=== PATIENT | female | born 1985 | race Two or more races ===

== ENCOUNTER 2017-12-31 09:49 | Inpatient (IN) | payer OTHER ==
[2017-12-27 11:17] VITALS: BMI 39.6
[~2017-12-31 09:49] MED LIST: BUPIVACAINE HCL/PF 0.5% (5MG/ML) 10 ML VIAL IJ ONE
[2017-12-31] MEDS ORDERED: PROPOFOL 20 ML ONE ×2 (12:23→14:15)
[2017-12-31] MEDS ORDERED: fentaNYL CITRATE 250 MCG/5 ML VIAL ONE (12:23)
[2017-12-31] MEDS ORDERED: DEXAMETHASONE SOD PHOSPHATE 4 MG/1 ML VIAL ONE (12:23)
[2017-12-31] MEDS ORDERED: ROCURONIUM BROMIDE 50 MG/5 ML VIAL ONE (12:23)
[2017-12-31] MEDS ORDERED: LIDOCAINE HCL/PF 2% SDV 5ML VIAL ONE (12:23)
[2017-12-31] MEDS ORDERED: ROPIVACAINE HCL 0.5% 30ML VIAL ONE (12:36)
[2017-12-31] MEDS ORDERED: DEXAMETHASONE SOD PHOSPHATE/PF 10 MG/ML SDV ONE (12:36)
[2017-12-31] MEDS ORDERED: MIDAZOLAM HCL 2 MG/2 ML SINGLE DOSE VIAL ONE ×2 (12:37)
[2017-12-31] MEDS ORDERED: NEOSTIGMINE METHYLSULFATE 0.5 MG/ML - 10 ML MDV ONE (12:57)
--- NOTE | 2017-12-31 13:16 | HP ---
Admitting History and Physical - Admission Chief Complaint: Morbid obesity History Source: Patient Limitations to Obtaining History: No Limitations - Past Medical History ...LMP: 12/06/17 ...LMP Comment: depo injection Q3 months- received 2 weeks ago - Smoking History Smoking history: Never smoked Have you smoked in the past 12 months: No - Alcohol/Substance Use Hx Alcohol Use: No Home Medications - Allergies Allergies/Adverse Reactions: Allergies Allergy/AdvReac Type Severity Reaction Status Date / Time No Known Allergies Allergy Verified 12/31/17 11:22 - Home Medications Home Medications: Ambulatory Orders Ferrous Sulfate [Iron] 325 mg PO TID 12/27/17 Family Disease History - Family Disease History Family History: Denies Review of Systems - Review of Systems Constitutional: denies: Chills, Fever HENT: reports: No Symptoms Neck: reports: No Symptoms Cardiovascular: reports: No Symptoms Gastrointestinal: reports: No Symptoms Neurological: reports: No Symptoms Pain Intensity: 0 Physical Examination Vital Signs: Vital Signs Temperature 98.3 F 12/31/17 11:22 Pulse Rate 63 12/31/17 11:22 Respiratory Rate 20 12/31/17 11:22 Blood Pressure 133/75 12/31/17 11:22 O2 Sat by Pulse Oximetry (%) 100 12/31/17 11:17 Constitutional: Yes: Calm HENT: Yes: WNL Neck: Yes: WNL Cardiovascular: Yes: WNL Respiratory: Yes: Regular Gastrointestinal: Yes: Soft, Abdomen, Obese Neurological: Yes: Alert, Oriented Problem List - Problems (1) Morbid obesity due to excess calories Code(s): E66.01 - MORBID (SEVERE) OBESITY DUE TO EXCESS CALORIES Assessment/Plan Laparoscopic possible open vertical sleeve gastrectomy, possible liver biopsy, EGD
[2017-12-31] MEDS ORDERED: DESFLURANE GAS 240 ML BOTTLE IH ONE (14:06)
[2017-12-31] MEDS ORDERED: ceFAZolin SODIUM 1 GM VIAL ONE (14:29)
[2017-12-31] MEDS ORDERED: GLYCOPYRROLATE 0.2 MG/1 ML VIAL ONE (15:23)
--- NOTE | 2017-12-31 15:42 | OP ---
Operative Note - Note: Operative Date: 12/31/17 Pre-Operative Diagnosis: Morbid obesity Operation: Laparoscopic vertical sleeve gastrectomy, wedge liver biopsy, EGD Post-Operative Diagnosis: Other (Morbid obesity, hepatomegaly) Surgeon: Xavi Burk Promotions Officer: Ashely Sorto Anesthesia: General Specimens Removed: Greater curvature of the stomach. Liver biopsy Estimated Blood Loss (mls): 30 Drains & Tubes with Location: 36 Fr Bougie Operative Report Dictated: Yes
[2017-12-31] MEDS: METOCLOPRAMIDE HCL INJECTION 10 MG/2 ML VIAL IVPUSH SCH ×2 (16:17→21:16)
[2017-12-31] MEDS: ACETAMINOPHEN 1000 MG/100 ML VIAL (NON FORMULARY) IVPB SCH ×2 (16:18→21:17)
[2017-12-31] MEDS: ONDANSETRON 4 MG/2 ML VIAL IVPUSH SCH ×4 (16:18→21:19)
--- NOTE | 2017-12-31 16:20 | SPEC ---
DATE OF OPERATION: 12/31/2017 SURGEON: Xavi Burk MD LOOSELEAF BINDER COVERER: PEDRO Mcmanus PREOPERATIVE DIAGNOSIS: Morbid obesity. POSTOPERATIVE DIAGNOSES: Morbid obesity and hepatomegaly. PROCEDURES: 1. Laparoscopic vertical sleeve gastrectomy. 2. Laparoscopic wedge liver biopsy. 3. Esophagogastroduodenoscopy/upper endoscopy. SPECIMEN: 1. Greater curvature of the stomach. 2. Liver biopsy. ESTIMATED BLOOD LOSS: 30 mL DRAINS: None. BOUGIE SIZE: 36-Greenlandic. REASON FOR PROCEDURE: This is a 32-year-old female who presented for weight loss options. After describing different options, decided to proceed with laparoscopic, possible open, vertical sleeve gastrectomy, possible liver biopsy, and upper endoscopy/EGD. RISKS AND BENEFITS: After describing the different options for weight loss management, the patient decided to proceed with a laparoscopic, possible open vertical sleeve gastrectomy. The patient was seen by the respective subspecialties and cleared for surgery. The risks and benefits of the procedure were explained. These included bleeding, infection, hernia, IN, DVT, PE, injury to surrounding structures including the liver, colon, bowel, spleen, esophagus, vessel injury, nerve injury, weight regain, gastric leak, staple line leak, sleeve leak, obstruction, vitamin deficiency, hair loss and as some of the possible complications. The patient understood and signed informed consent. DESCRIPTION OF PROCEDURE: The patient was placed supine on the operating room table. The patient underwent general endotracheal intubation. The arms were brought out at 90 degrees and secured. A footboard was placed and the legs were secured laterally with padding. The abdomen was prepped and draped in the usual sterile fashion. A timeout was performed. An incision was made in the left upper quadrant and a Veress needle inserted. Pneumoperitoneum was established. Subsequently, the Veress needle was removed and a 5-mm trocar was placed under direct visualization with the laparoscope. The laparoscopic camera was then inserted and inspection of the abdominal cavity was performed. An incision was then made in the supraumbilical area and a 15-mm trocar was placed under direct visualization. A 5-mm trocar was then placed in the right upper quadrant and a 5-mm trocar was placed below the left subcostal margin. A stab wound was made in the subxiphoid area and a Karina clamp inserted and removed to dilate the tract. A Moni liver retractor was inserted. The post was secured at the bedside by the nursing staff. The patient was placed in steep reverse Trendelenburg position and the Moni liver retractor was used to secure the liver towards the anterior abdominal wall. The pylorus was identified and 6 cm proximal to it, the lesser sac was entered using the LigaSure device. All lateral attachments to the greater curvature of the stomach, including the short gastric vessels, were ligated using the LigaSure device toward the gastrosplenic and gastrophrenic ligaments. Once this was done in its entirety, it was confirmed that all tubes within the nasal or oropharyngeal cavity, including a temperature probe, was removed by Anesthesia. The bougie was then inserted by Anesthesia. Transection of the stomach was then begun staying adjacent to the bougie but away from the angularis. Transection of the stomach was performed near the portion of the stomach where the lesser sac was entered. Two laparoscopic Endo-CLEMENTINA black sona were used at this location. Laparoscopic Endo CLEMENTINA purple staple loads were then used for the remainder of the transection until the greater curvature of the stomach was fully transected. This was done staying close to the bougie. Care was taken to stay away from the angle of His cephalad. The staple line was then inspected. Hemostasis was identified. A leak test was then performed. It was clamped distally to the staple line. Irrigation solution was placed in the left upper quadrant and air was insufflated by Anesthesia into the sleeve. No leaks were identified. No obstruction was identified. This was done through the entirety of the staple line. In addition, an upper endoscopy was performed. The endoscope was placed into the patients mouth and the entirety of the esophagus, GE junction, gastric pouch and staple line were inspected. No obstruction or leak was noted. The stomach was suctioned and the endoscope removed fully intact. At this point, the irrigation solution was suctioned and again, hemostasis was noted. A wedge liver biopsy was then performed. The left lobe of the liver was identified and a portion of the edge was grasped. Using electrocautery, a wedge of the liver was excised. This was removed and sent off the field as specimen. Hemostasis at the site of the wedge liver biopsy was attained using electrocautery. The 15-mm supraumbilical trocar was then removed and the greater curvature specimen removed from the site using a sponge stick chan. The specimen was inspected and a Veress needle inserted. The specimen insufflated adequately and no leak was identified. The staple line was noted to be intact. A Eder-Yane device was then used to close the fascia with a 0 Vicryl suture at the site. Again, hemostasis was noted. The Moni liver retractor was then removed under direct visualization. Pneumoperitoneum was desufflated and the fascial sutures were secured. Hemostasis was noted at all incision sites and Marcaine was injected at all incision sites. All incision sites were closed using 4-0 Biosyn. Sterile dressings were applied. The patient tolerated the procedure well and was transferred to the recovery room in stable condition. The patient was transferred to telemetry for further monitoring. Andrés DE [id number]
[2017-12-31] MEDS: HYDROmorphone HCl 2 MG/ML VIAL ONE ×2 (16:40→16:50)
[2017-12-31 17:17] LABS: HEMOGLOBIN 10.3 GM/dL (10.7-15.3); MCH 23.4 pg (25.7-33.7); MCHC 31.3 g/dl (32.0-36.0); MEAN CELL VOLUME 74.5 fl (80-96); MEAN PLT VOLUME 8.4 fl (7.5-11.1); PLATELET COUNT 300 K/MM3 (134-434); RBC 4.43 M/mm3 (3.60-5.2); RDW 18.6 % (11.6-15.6)
[2017-12-31] MEDS ORDERED: ONDANSETRON 4 MG/2 ML VIAL IVPUSH PRN (17:18)
[2017-12-31] MEDS ORDERED: HYDROmorphone HCl 2 MG/ML VIAL IVPUSH ONE (17:19)
[2017-12-31] MEDS ORDERED: LACTATED RINGERS SOLUTION 1,000 ML IV SCH (17:30)
[2017-12-31 17:41] LABS: ALBUMIN 3.6 g/dl (3.4-5.0); ALK PHOS 78 U/L (45-117); ANION GAP 7 MMOL/L (8-16); BILIRUBIN,TOTAL 0.3 mg/dL (0.2-1); BLOOD UREA NITROGEN 12 mg/dL (7-18); CALCIUM 8.3 mg/dL (8.5-10.1); CHLORIDE 108 mmol/L (98-107); CO2 24 mmol/L (21-32); CREATININE 0.8 mg/dL (0.55-1.3); GLUCOSE,RANDOM 141 mg/dL (74-106); POTASSIUM 4.4 mmol/L (3.5-5.1); SGOT/AST 49 U/L (15-37); SGPT/ALT 51 U/L (13-61); SODIUM 139 mmol/L (136-145); TOT PROT 6.9 g/dl (6.4-8.2)
[2017-12-31] MEDS: SODIUM CHLORIDE 1,000 ML IV SCH ×2 (18:00→23:14)
[2017-12-31] MEDS: morphine SULFATE 4 MG/ML VIAL IVPUSH PRN ×2 (18:47→23:13)
[2017-12-31] MEDS: ENOXAPARIN NA (PORCINE) 40 MG/0.4 ML DISP.SYRIN SQ SCH (21:13)
[2017-12-31] MEDS: FAMOTIDINE 20 MG/50 ML IVPB 20 MG/50 ML MG IVPB SCH (21:17)
[2018-01-01] MEDS: ONDANSETRON 4 MG/2 ML VIAL IVPUSH SCH ×3 (02:07→11:36)
[2018-01-01] MEDS: METOCLOPRAMIDE HCL INJECTION 10 MG/2 ML VIAL IVPUSH SCH ×2 (02:07→11:34)
[2018-01-01] MEDS: ACETAMINOPHEN 1000 MG/100 ML VIAL (NON FORMULARY) IVPB SCH ×2 (04:56→11:36)
[2018-01-01] MEDS: SODIUM CHLORIDE 1,000 ML IV SCH (06:04)
[2018-01-01 06:53] LABS: HEMATOCRIT 30.3 % (32.4-45.2); HEMOGLOBIN 9.4 GM/dL (10.7-15.3); MCH 22.8 pg (25.7-33.7); MEAN CELL VOLUME 73.5 fl (80-96); MEAN PLT VOLUME 7.7 fl (7.5-11.1); PLATELET COUNT 253 K/MM3 (134-434); RBC 4.12 M/mm3 (3.60-5.2); RDW 18.3 % (11.6-15.6); WHITE BLOOD COUNT 6.5 K/mm3 (4.0-10.0)
--- NOTE | 2018-01-01 07:31 | SURG ---
Surgery Economics Department Chair Note Economics Department Chair: Ashely Sorto PA-C Date of Service: 12/31/17 Diagnosis: Morbid obesity Procedure: Laparoscopic vertical sleeve gastrectomy, wedge liver biopsy, EGD I was present for the entirety of the operative procedure. For further detail, please refer to operative report. Visit type - Case Type Case Type: Scheduled - Emergency Emergency Visit: No - New patient This patient is new to me today: Yes Date on this admission: 12/31/17
[2018-01-01 07:37] LABS: ALBUMIN 3.3 g/dl (3.4-5.0); ALK PHOS 70 U/L (45-117); ANION GAP 9 MMOL/L (8-16); BILIRUBIN,TOTAL 0.5 mg/dL (0.2-1); BLOOD UREA NITROGEN 10 mg/dL (7-18); CALCIUM 7.7 mg/dL (8.5-10.1); CHLORIDE 112 mmol/L (98-107); CO2 22 mmol/L (21-32); CREATININE 0.6 mg/dL (0.55-1.3); GLUCOSE,RANDOM 106 mg/dL (74-106); POTASSIUM 4.2 mmol/L (3.5-5.1); SGOT/AST 42 U/L (15-37); SGPT/ALT 51 U/L (13-61); SODIUM 143 mmol/L (136-145); TOT PROT 6.4 g/dl (6.4-8.2)
--- NOTE | 2018-01-01 08:29 | PN ---
Progress Note (short form) - Note Progress Note: 32F s/p Lap gastric sleeve POD 1, pt seen and examined at bedside. Pt states that she has been having mild pain, but that it has been controlled with pain meds. Pt is ambulating and urinating well. Pt denies n/v, fever, chills. Last Vital Signs Temp Pulse Resp BP Pulse Ox 97.9 F 74 20 117/59 L 98 01/01/18 06:00 01/01/18 06:00 01/01/18 06:00 01/01/18 06:00 12/31/17 20:37 CBC, BMP 01/01/18 06:20 01/01/18 06:20 PE: Gen: A&O x3 Resp: breathing comfortably Abd: soft, nondistended, mild tenderness, incisions are clean with no erythema or discharge. Ext: no edema <Glenn Das - Last Filed: 01/01/18 08:20> - Note Progress Note: POD 1 Pain controlled No nausea AVSS Abd soft UGI: no leak/obstruction Clears Discharge home <Xavi Burk - Last Filed: 01/01/18 12:38> Problem List - Problems (1) Morbid obesity due to excess calories Assessment/Plan: Plan -Will get upper GI this AM, if ok will advance diet to bariatric stage 1 -pain management -incentive spirometry -DVT ppx -will consider discharge home this PM if patient doing well and tolerating diet. Code(s): E66.01 - MORBID (SEVERE) OBESITY DUE TO EXCESS CALORIES <Glenn Das - Last Filed: 01/01/18 08:20> - Problems (1) Morbid obesity due to excess calories Code(s): E66.01 - MORBID (SEVERE) OBESITY DUE TO EXCESS CALORIES <Xavi Burk - Last Filed: 01/01/18 12:38>
[2018-01-01] MEDS ORDERED: oxyCODONE HCL 5 MG TABLET PO PRN (10:14)
[2018-01-01] MEDS ORDERED: SODIUM CHLORIDE 1,000 ML IV SCH (10:15)
[2018-01-01] MEDS: ENOXAPARIN NA (PORCINE) 40 MG/0.4 ML DISP.SYRIN SQ SCH (11:34)
[2018-01-01] MEDS: FAMOTIDINE 20 MG/50 ML IVPB 20 MG/50 ML MG IVPB SCH (11:35)
[2018-01-01 14:00] VITALS: BP 124/58; PULSE 69; TEMP 98.4
--- NOTE | 2018-01-02 15:09 | PATH ---
Surgical Pathology Report Patient Name: [facility]. Rec. #: [id number] /Age/Gender: 1985 (Age: 32) / F Account: [id number] Location: 4 SO PEDS/ADOL Taken: 12/31/2017 Received: 01/01/2018 Reported: 01/02/2018 Physicians: Xavi Burk M.D. Specimen(s) Received A: GREATER CURVATURE STOMACH B: LIVER BIOPSY Clinical History Morbid obesity Final Diagnosis A. GREATER CURVATURE STOMACH, LAPAROSCOPIC VERTICAL SLEEVE GASTRECTOMY: SEGMENT OF STOMACH SHOWING MILD ACTIVE GASTRITIS. 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 PYLORI ORGANISMS. B. LIVER, BIOPSY: LIVER TISSUE WITH FOCAL STEATOSIS (<2%). NO HISTOLOGIC EVIDENCE OF HEPATITIS. RETICULIN STAIN SHOWS AN INTACT SINUSOIDAL ARCHITECTURE. NO INCREASE IN FIBROSIS (TRICHROME STAIN) OR IRON (IRON STAIN) DEPOSITION. Comment: Subcapsular liver tissue with thermal effect. Electronically Signed Flores Acosta M.D. Gross Description A. Received in formalin, labeled "greater curvature of stomach," is a 110 gram, 17.0 x 2.5 x 2.5 cm. portion of stomach with a stapled margin of resection. The serosa is mcnair-ulrich with minimal attached fat. The mucosa is mcnair-pink with normal folds. No mucosal masses are identified. Technical Delivery Manager sections are submitted in one cassette. B. Received in formalin labeled "liver biopsy," is a 2.4 x 0.6 x 0.3 cm mcnair portion of soft tissue, consistent with liver. The specimen is submitted in toto in one cassette. 01/01/2018 saudi01/01/2018
== END 2018-01-01 14:05 | disposition home or self-care (01) | DRG 403 ==
LOC: JSAMEDAYSX 09:49 → EDSTATUS 12:00 → J4S 18:35
PROVIDERS: ADMIT Surgery; ATTEND Surgery
PROC: 0DB64Z3 Excision of Stomach, Percutaneous Endoscopic Approach, Vertical (ICD-10-PCS; principal; 2017-12-31 12:30)
PROC: 0FB24ZX Excision of Left Lobe Liver, Percutaneous Endoscopic Approach, Diagnostic (ICD-10-PCS; 2017-12-31 12:30)
PROC: 0DJ08ZZ Inspection of Upper Intestinal Tract, Via Natural or Artificial Opening Endoscopic (ICD-10-PCS; 2017-12-31 12:30)
DX: E66.01 Morbid (severe) obesity due to excess calories (principal); R16.0 Hepatomegaly, not elsewhere classified; Z68.38 Body mass index [BMI] 38.0-38.9, adult
CPT/HCPCS: 36415; 74241-TC-FY; 80053; 84703; 85027; 86850; 86900; 86901; 88305-TC; 94760; J0131; J7030